=== PATIENT | male | born 1980 | race African-American/Black ===

== ENCOUNTER 2018-12-22 10:28 | Emergency (ER) | payer OTHER ==
[~2018-12-22] VITALS: Ht 167.6 cm; Wt 59.9 kg
--- NOTE | 2018-12-22 10:30 | NUR ---
[facility] TO ER BED 03
[2018-12-22 10:31] VITALS: BP 127/81
--- NOTE | 2018-12-22 10:40 | NUR ---
Pt [facility] in by ems [facility] [place]. Pt was with breakthrough partial seizures witness; lasting about 6 mins. Day health care recruiter denies no injuries. DENIES N/V/D; SKIN IS PINK/WARM/DRY; PT does not have ANY FEVER, SOB, OR COUGH AT THIS TIME; G-tube is clean. VSS; PATIENT POSITIONED FOR COMFORT; HOB ELEVATED; BEDRAILS UP X2; BED DOWN. seizure pads placed on two sides of the bed. ER MD MADE AWARE OF PT STATUS.
[2018-12-22] MEDS ORDERED: LORA10TA19 PO (11:02)
[2018-12-22] MEDS ORDERED: PHEN100C3 GT (11:02)
[2018-12-22] MEDS ORDERED: VALP-22 GT ×2 (11:02)
[2018-12-22] MEDS ORDERED: MULT-153 PO (11:02)
[2018-12-22] MEDS ORDERED: MAGN1.7538 GT (11:02)
[2018-12-22] MEDS ORDERED: RISP0.251 PO (11:04)
[2018-12-22] MEDS ORDERED: KEP500L GT (11:04)
[2018-12-22] MEDS ORDERED: MIRT15TA PO (11:04)
[2018-12-22] MEDS ORDERED: NACL 0.9% 1,000 ML IV ONE (11:09)
--- NOTE | 2018-12-22 11:30 | NUR ---
PT TAKEN TO CT AT THIS TIME
[2018-12-22 11:43] LABS: BASOPHILS % (AUTO) 0.5 % (0.0-2.0); EOSINOPHILS # (AUTO) 0.1 K/uL (0-0.4); EOSINOPHILS % (AUTO) 2.1 % (0.0-4.0); HEMATOCRIT 42.9 % (36-52); HEMOGLOBIN 14.3 g/dL (12.0-18.0); LYMPHOCYTES # (AUTO) 1.7 K/uL (2.0-11.5); LYMPHOCYTES % (AUTO) 33.1 % (20.5-51.1); MEAN CORPUSCULAR HEMOGLOBIN 31 pg (27-31); MEAN CORPUSCULAR HGB CONC 33 g/dL (33-37); MEAN CORPUSCULAR VOLUME 93.8 fL (80-94); MONOCYTES # (AUTO) 0.7 K/uL (0.8-1.0); MONOCYTES % (AUTO) 14.1 % (1.7-9.3); NEUTROPHILS # (AUTO) 2.5 K/uL (1.8-7.7); NEUTROPHILS % (AUTO) 50.2 % (42.2-75.2); PLATELET COUNT (AUTO) 159 K/uL (140-450); RED BLOOD CELL COUNT(AUTO) 4.57 MIL/uL (4.20-6.10); RED CELL DISTRIBUTION WIDTH 14.2 % (11.6-13.7)
--- NOTE | 2018-12-22 11:50 | NUR ---
Pt is back from CT.
[2018-12-22 11:56] LABS: CARBON DIOXIDE 31.5 mmol/L (21-32); CHLORIDE 100 mmol/L (98-107); CREATININE 1.3 mg/dL (0.7-1.3); GFR ARICAN-AMERICAN 79 mL/min (>90); GLUCOSE 74 mg/dL (74-106); POTASSIUM 4.5 mmol/L (3.5-5.1); SODIUM SERUM 139 mmol/L (136-145); UREA NITROGEN, BLOOD 14 mg/dL (7-18)
[2018-12-22 12:08] LABS: AMYLASE 108 U/L (25-115); ASPARTATE AMINOTRANSFERASE 22 U/L (15-37); LIPASE 164 U/L (73-393); MAGNESIUM 2.4 mg/dL (1.8-2.4); TOTAL BILIRUBIN 0.2 mg/dL (0.0-1.0)
[2018-12-22 12:21] LABS: ACETONE, SERUM NEGATIVE (NEGATIVE)
[2018-12-22 13:26] VITALS: BP 103/69
--- NOTE | 2018-12-22 13:28 | NUR ---
Patient discharged with v/s stable. Written and verbal after care instructions given and explained to stepfather and verbalized understanding. Ambulance Transport with by stepfather. All questions addressed prior to discharge. Advised to follow up with PMD.
== END 2018-12-22 13:28 | disposition home or self-care (01) ==
LOC: MED 10:28
DX: R56.9 Unspecified convulsions (principal); G80.9 Cerebral palsy, unspecified; F79 Unspecified intellectual disabilities; Z79.899 Other long term (current) drug therapy
CPT/HCPCS: 36415; 70450; 71045; 80053; 80173; 82009; 82150; 83605; 83690; 83735; 85025; 99284; J7030; Q0092

== ENCOUNTER 2019-05-18 13:18 | Emergency (ER) | payer OTHER ==
[~2019-05-18] VITALS: Ht 167.6 cm; Wt 55.8 kg
[~2019-05-18 13:18] MED LIST: KEP500L GT; LORA10TA19 PO; MAGN1.7538 GT; MIRT15TA PO; MULT-153 PO; PHEN100C3 GT; RISP0.251 PO; VALP-22 GT
--- NOTE | 2019-05-18 13:18 | NUR ---
Patient BIBA ALS accompanied by Abdi KIM 151, transferred to bed 10. RN evaluating patient at bedside.
--- NOTE | 2019-05-18 13:19 | NUR ---
Dr. Shelton is evaluating the patient at bedside.
--- NOTE | 2019-05-18 13:30 | NUR ---
39/M BIBA ARRIVED UNRESPONSIVE INITIAL GCS 3. CAME IN FROM SNF O2 SAT IN LOW 90S. IV G 22 ESTABLISHED ON LEFT LEG BY EMT. UPON ASSESSMENT GCS OF 9, AROUSABLE TO NAME, GOES IN AND OUT OF CONCIOUSSNESS. CONSTRICTED, NO WOUNDS, CAP REFILL <3SECS, LUNGS ARE CLEAR, PUPILS ARE SLUGISH, 2MM. PMHX: SEIZURES, SCOLIOSIS, CEREBRAL PALSY RX: UNKNOWN
--- NOTE | 2019-05-18 13:35 | NUR ---
Respiratory therapist at bedside for ABG.
[2019-05-18 13:37] VITALS: BP 121/84
--- NOTE | 2019-05-18 13:51 | NUR ---
PT GOING TO CT AT THIS TIME VIA [facility]
--- NOTE | 2019-05-18 13:51 | NUR ---
X-RAY AT BEDSIDE
--- NOTE | 2019-05-18 14:29 | NUR ---
LAB AT BEDSIDE
--- NOTE | 2019-05-18 14:35 | NUR ---
MOTHER AT BEDSIDE
--- NOTE | 2019-05-18 14:45 | NUR ---
AT BEDSIDE SPEAKING WITH MOTHER
[2019-05-18 14:46] LABS: BASOPHILS % (AUTO) 0.3 % (0.0-2.0); EOSINOPHILS % (AUTO) 0.7 % (0.0-4.0); HEMATOCRIT 43.7 % (36-52); HEMOGLOBIN 14.6 g/dL (12.0-18.0); LYMPHOCYTES # (AUTO) 1.6 K/uL (2.0-11.5); LYMPHOCYTES % (AUTO) 23.5 % (20.5-51.1); MEAN CORPUSCULAR HEMOGLOBIN 33 pg (27-31); MEAN CORPUSCULAR HGB CONC 33 g/dL (33-37); MEAN CORPUSCULAR VOLUME 98.1 fL (80-94); MONOCYTES # (AUTO) 0.9 K/uL (0.8-1.0); MONOCYTES % (AUTO) 13.4 % (1.7-9.3); NEUTROPHILS # (AUTO) 4.3 K/uL (1.8-7.7); NEUTROPHILS % (AUTO) 62.1 % (42.2-75.2); PLATELET COUNT (AUTO) 179 K/uL (140-450); RED BLOOD CELL COUNT(AUTO) 4.46 MIL/uL (4.20-6.10); RED CELL DISTRIBUTION WIDTH 15.2 % (11.6-13.7)
[2019-05-18 15:01] LABS: ANION GAP 8.9 (8-16); CARBON DIOXIDE 34.4 mmol/L (21-32); CREATININE 1.4 mg/dL (0.7-1.3); POTASSIUM 4.3 mmol/L (3.5-5.1)
[2019-05-18 15:07] LABS: ALBUMIN 3.7 g/dL (3.4-5.0); TOTAL BILIRUBIN 0.2 mg/dL (0.0-1.0)
[2019-05-18 15:25] LABS: PROTHROMBIN TIME 10.2 secs (10.8-13.4)
[2019-05-18 15:41] LABS: APPEARANCE,URINE CLEAR (CLEAR); BILIRUBIN,URINE NEGATIVE (NEGATIVE); BLOOD, URINE 3+ (NEGATIVE); COLOR,URINE YELLOW (YELLOW); LEUKOCYTE ESTERASE ,URINE NEGATIVE (NEGATIVE); NITRITE, URINE NEGATIVE (NEGATIVE); PH,URINE 7.5 (5.0-9.0); UGLUCOSE NEGATIVE (NEGATIVE)
[2019-05-18 16:00] LABS: RBC,URINE >100 /HPF (0-5); WBC,URINE 0-5 /HPF (0-5)
--- NOTE | 2019-05-18 17:37 | NUR ---
PT. SLEEPING, VSS. IV IS PATENT. MOTHER IS AT BEDSIDE
--- NOTE | 2019-05-18 18:26 | NUR ---
CALLED [facility] [employer] [employer] TO GIVE REPORT, SAID TO CALL BACK IN THIRTY MINUTES.
--- NOTE | 2019-05-18 18:41 | NUR ---
[facility] at bedside to transfer the patient to [facility] room #222.
--- NOTE | 2019-05-18 18:52 | NUR ---
Patient to be transferred to [facility]. Is being transferred due to INSURANCE. Receiving facility has accepting physician and available space. ER physician has signed transfer form. Patient or responsible democrat has agreed to transfer and signed form. Patient belongings inventoried and will be sent with patient. Copy of nursing notes, lab reports, EKG, Physicians Orders and X-rays to be sent with patient. Report called to NURSEat receiving facility. ambulance service has been called for transfer. ETA is 10.
[2019-05-18 18:55] VITALS: BP 114/64
[2019-05-21 07:18] LABS: LAMOTRIGINE 7.7 ug/mL (2.0-20.0)
== END 2019-05-18 18:52 | disposition short-term general hospital (02) ==
LOC: MED 13:18
DX: I63.9 Cerebral infarction, unspecified (principal); G40.909 Epilepsy, unspecified, not intractable, without status epilepticus; G80.9 Cerebral palsy, unspecified; E87.2 Acidosis; R31.29 Other microscopic hematuria; F73 Profound intellectual disabilities; Z98.890 Other specified postprocedural states; Z79.899 Other long term (current) drug therapy
CPT/HCPCS: 36415; 36600; 70450; 71045; 80053; 80173; 80299; 81001; 82550; 82803; 83605; 83880; 84484; 85025; 85610; 85730; 87040; 87086; 99291; C1758; Q0092; 93005